=== PATIENT | female | born 1975 | race Caucasian/White ===

== ENCOUNTER 2020-07-26 23:16 | Emergency (ER) | payer OTHER, SELFPAY ==
--- NOTE | 2020-07-26 00:10 | DI.CT_ITS ---
EXAM: CT HEAD CERVICAL SPINE WO CLINICAL HISTORY: Right sided head trauma, neck pain. TECHNIQUE: Imaging Protocol: Axial computed tomography images with coronal and sagittal reformatted images were created and reviewed COMPARISON: No exams were available for comparison FINDINGS: CT Head: Ventricles and Extra axial spaces: Normal in size and morphology for the patient's age. Hemorrhage: None. Cerebral parenchyma: Normal. Midline shift: None. Brainstem/Cerebellum: Normal. Calvarium: Normal. Visualized Paranasal sinuses/Mastoids: There is mild mucosal thickening in the ethmoid air cells in t he right maxillary sinus. The remaining visualized paranasal sinuses are clear as are the mastoid ai r cells. Soft Tissues: Unremarkable. CT Cervical Spine: Bones: No acute fracture or subluxation. There is reversal of the normal cervical lordosis. Degenera tive changes are seen in the cervical spine particularly at the C5-C6 level. Soft Tissues: Unremarkable. Lung Apices: Clear. IMPRESSION: 1. No acute intracranial process. 2. No acute fracture or subluxation in the cervical spine. RADIATION DOSE DELIVERED: 1,485.42mGy.cm Total DLP DATA REPOSITORY: All CT scans at this facility are submitted to the National Radiology Data Registry (NRDR) Dose Index Registry (DIR) with the [employer] ([employer]). RADIATION OPTIMIZATION: All CT scans at this facility use at least one of these dose optimization te chniques: automated exposure control; mA and/or kV adjustment per patient size (includes targeted exa ms where dose is matched to clinical indication); or iterative reconstruction.
[2020-07-26 23:23] VITALS: BP 141/68; PULSE 71; RESP 18; TEMP 36.6; O2SAT 100
--- NOTE | 2020-07-26 23:32 | ED.GENADUL_ITS ---
Discharge Plan Disposition Patient Disposition: HOME Condition: Stable Discharge Details Clinical Impression: Closed head injury with concussion Primary Care Provider: None,None ED Provider: Umm Franco Meds and New Rx's Prescriptions: New cyclobenzaprine 10 mg tablet 10 mg PO TID PRN (Reason: muscle spasm) Qty: 10 RF: 0 Discharge Instructions Instructions: Concussion (ED), Head Injury (ED) Additional Instructions: Follow up with primary care provider in 3-5 days. Return to ED sooner if any worsening or concerns. Increase oral fluids. Please take Tylenol or Ibuprofen with food every 4-6 hours as needed for pain and swelling. Take Flexeril as needed for neck stiffness as may cause drowsiness do not operate heavy machinery while on this medication. Return for any worsening headache not relieved by Tylenol or ibuprofen, confusion, numbness tingling, vomiting or any concerns. Stand Alone Forms: Work Release Discharge Data Discharge Date/Time-TO BE ENTERED AT DEPARTURE: 07/27/20 01:06 Medical Decision Making <Umm Franco - Last Filed: 07/29/20 08:44> 44-year-old female presents to the ED with chief complaint of closed head injury which occurred while at work approximately 6:00 this morning. She states that a heavy piece of machinery hit the right side of her head. No loss of consciousness, she continued to work all day but she does note bilateral tinnitus, right-sided head and jaw pain, neck stiffness, and mild confusion. She states that she has been taking Tylenol and ibuprofen all day, denies any alcohol, no marijuana or substance abuse, she does endorse smoking daily. She also does state that she hit her head approximately 5 weeks ago after a slip and fall on the ice she was not evaluated at that time. On initial exam she does have a small hematoma noted to her right parietal scalp. No palpable skull fractures. CT head c-spine ordered to rule out intracranial abnormality or C-spine abnormality. At this time I strongly suspect concussion. Care to be handed off to ER attending Dr. Chad King MD pending CT read. Discussed plan of care with patient who is concerned for the tinnitus in her bilateral ears, I will get give meclizine here in department to see if that helps. Prescription written for Flexeril and written return instructions follow-up care given. <Chandler King MD - Last Filed: 07/27/20 01:08> CT head and cervical spine negative for acute traumatic injury. Patient has been medicated per nurse practitioner Salvador. Discharge home with concussion precautions. Follow-up primary care or occupational health next week. Return to ED for neurologic changes, persistent vomiting, worsening headache. HPI <Umm Franco - Last Filed: 07/29/20 08:44> General Mode of arrival: ambulatory . Date/Time Provider Initiated Documentation: 07/26/20 23:24 . Limitations to Documentation: no limitations . Information obtained by: patient . HPI Narrative: 44-year-old female presents to the ED with chief complaint of closed head injury which occurred while at work approximately 6:00 this morning. She states that a heavy piece of machinery hit the right side of her head. No loss of consciousness, she continued to work all day but she does note bilateral tinnitus, right-sided head and jaw pain, neck stiffness, and mild confusion. She states that she has been taking Tylenol and ibuprofen all day, denies any alcohol, no marijuana or substance abuse, she does endorse smoking daily. She also does state that she hit her head approximately 5 weeks ago after a slip and fall on the ice she was not evaluated at that time. On initial exam she does have a small hematoma noted to her right parietal scalp. No palpable skull fractures. Related Data Home Medications Medication Instructions Recorded Confirmed cyclobenzaprine 10 mg PO TID PRN #10 tab 07/27/20 Previous Rx's Medication Instructions Recorded cyclobenzaprine 10 mg PO TID PRN #10 tab 07/27/20 General Stated Complaint: HeadInjury TERE: 3 Review of Systems <Umm Franco - Last Filed: 07/29/20 08:44> All systems reviewed & are unremarkable except as noted in HPI and below Eyes Eyes: Denies blurry vision, Denies diplopia, Denies loss of vision, Denies photophobia and Denies spots in vision ENT Ears, Nose, Mouth, and Throat: Reports as per HPI, Reports facial pain, Denies nasal discharge, Denies nasal trauma, Reports neck pain and Reports tinnitus Musculoskeletal Musculoskeletal: Reports neck pain Neurologic Neurologic: Denies loss of vision PFSH <Umm Franco - Last Filed: 07/29/20 08:44> Social History Smoking/Tobacco Use Status: Current every day Smoking risk assessment performed?: Yes Alcohol Intake: current Alcohol Intake frequency: a few times a month Substance use type: does not use Do you feel safe at home: Yes Do you feel safe in your relationship?: Yes Exam <Umm Franco - Last Filed: 07/29/20 08:44> Narrative Exam Narrative: Constitutional: Alert and oriented x3. Appears stated age. Normal body habitus. Head: Normocephalic, small approximately 1 cm palpable hematoma noted to right parietal scalp, Eyes: Pupils PERRLA, Red reflex noted, EOM's intact. Eyelids symmetrical without lesions, discharge, or swelling. ENT: Bilateral TM's WNL, no hemotympanum bilaterally, external ear normal to inspection, no mastoid TTP, swelling, or erythema, Nasal turbinates WNL, no septal hematoma, no nasal discharge. Normal dentition, Posterior pharynx WNL, no exudate. Mild tenderness to the right side of her jaw, no crepitus no jaw stiffness able to open and close her mouth without difficulty. Chest: RRR, Normal S1, S2, distal pulses intact. Resp: Lungs clear to auscultation bilaterally, no wheezes, rales, or rhonchi. Musculoskeletal: Normal gait, 5/5 strength to all four extremities. Skin: No suspicious rashes or lesions. Capillary refill less than 2 sec. Neurologic: Cranial nerves II-XII intact. Alert and oriented x 3. DTR's intact. Mild difficulty finding words. Hematologic/Lymphatic: No ecchymosis, no lymphadenopathy. Course <Umm Franco - Last Filed: 07/29/20 08:44> Vital Signs Vital signs: Vital Signs Temperature 36.6 C 07/26/20 23:23 Pulse 71 07/26/20 23:23 Respiratory Rate 18 07/26/20 23:23 Blood Pressure 141/68 H 07/26/20 23:23 Pulse Oximetry 100 07/26/20 23:23 Temperature 36.6 C 07/26/20 23:23 Temperature Source Temporal Artery Scan 07/26/20 23:23 Pulse 71 07/26/20 23:23 Respiratory Rate 18 07/26/20 23:23 Respiratory Effort Non-Labored 07/26/20 23:28 Respiratory Depth Normal 07/26/20 23:28 Respiratory Pattern Normal 07/26/20 23:28 Blood Pressure 141/68 H 07/26/20 23:23 Blood Pressure Position Sitting 07/26/20 23:23 Pulse Oximetry 100 07/26/20 23:23 Oxygen Delivery Method Room Air 07/26/20 23:23 Oxygen Flow Rate 0 07/26/20 23:23 Pain Level 7 07/26/20 23:23
[2020-07-26] MEDS: Cyclobenzaprine 10 MG TAB PO (23:40)
[2020-07-27] MEDS: Meclizine 25 MG TAB PO (00:42)
--- NOTE | 2020-07-27 00:54 | DI.VRAD_ITS ---
PROCEDURE INFORMATION: Exam: CT Head Without Contrast Exam date and time: 07/26/2020 11:47 PM Age: 44 years old Clinical indication: Injury or trauma; Work related; Blunt trauma (contusions or hematomas); Without loss of consciousness; Injury date: 07/26/20; Injury details: Axle of vehicle fell on top of right side of head 12+ hours ago. ; Patient HX: Concussion x1week ago TECHNIQUE: Imaging protocol: Computed tomography of the head without contrast. Total images: 1840 Radiation optimization: All CT scans at this facility use at least one of these dose optimization techniques: automated exposure control; mA and/or kV adjustment per patient size (includes targeted exams where dose is matched to clinical indication); or iterative reconstruction. COMPARISON: No relevant prior studies available. FINDINGS: Brain: No intra or extra axial bleed. No edema or mass effect. The central chavez structures and cortical ribbon are maintained. Cerebral ventricles: No hydrocephalus. Basal cisterns are patent. Bones/joints: No significant bony abnormality. No fracture. Paranasal sinuses: There is mild mucosal thickening in a few ethmoid air cells and in the right maxillary sinus. Mastoid air cells: Mastoid air cells are clear. Orbital cavity: Unremarkable. Soft tissues: Unremarkable. IMPRESSION: 1. No acute intracranial abnormality. 2. No intracerebral bleed. PROCEDURE INFORMATION: Exam: CT Cervical Spine Without Contrast Exam date and time: 07/26/2020 11:47 PM Age: 44 years old Clinical indication: Injury or trauma; Work related; Blunt trauma (contusions or hematomas); Without loss of consciousness; Injury date: 07/26/20; Injury details: Axle of vehicle fell on top of right side of head 12+ hours ago. ; Patient HX: Concussion x1week ago TECHNIQUE: Imaging protocol: Computed tomography images of the cervical spine without contrast. Radiation optimization: All CT scans at this facility use at least one of these dose optimization techniques: automated exposure control; mA and/or kV adjustment per patient size (includes targeted exams where dose is matched to clinical indication); or iterative reconstruction. COMPARISON: No relevant prior studies available. FINDINGS: Bones/joints: There is reversal of the cervical lordosis. No fracture or subluxation. Discs/Spinal canal/Neural foramina: There is significant degenerative disc space narrowing at C5-C6 and C6-C7 with mild spondylosis mildly narrowing the neural foramen. There is mild disc bulging at C4-C5, C5-C6 and C6-C7 narrowing the anterior thecal sac. Epidural space: No gross epidural hemorrhage. Prevertebral Space: There is no prevertebral soft tissue swelling. Lungs: There is minimal pleural thickening at the lung apices. No pneumothorax. Soft tissues: Unremarkable. IMPRESSION: 1. No fracture or subluxation. 2. Degenerative disc disease. Dictated and Authenticated by: Jamey Amin MD. Ordering:CAITLYN Salomon MD
[2020-07-27 01:08] VITALS: BP 141/68; PULSE 71; RESP 18; TEMP 36.6; O2SAT 100
== END 2020-07-27 01:06 | disposition home or self-care (01) ==
PROVIDERS: Emergency Provider Registered Nurse Emergency
DX: S06.0X0A Concussion without loss of consciousness, initial encounter (principal); W31.9XXA Contact with unspecified machinery, initial encounter; Y99.0 Civilian activity done for income or pay; R68.84 Jaw pain; S13.4XXA Sprain of ligaments of cervical spine, initial encounter
CPT/HCPCS: 81025; 99284; 70450; 72125

== ENCOUNTER 2020-09-03 12:24 | Outpatient (CLI) | payer OTHER, SELFPAY ==
--- NOTE | 2020-09-03 13:24 | DI.RAD_ITS ---
EXAM: XR CERVICAL SP GAFFNEY TRAUMA 2-3V CLINICAL HISTORY: CERVICALGIA, M54.2, S/P CONCUSSION, ? ODONTOID CHANGES/RADICULAR CAUSES TECHNIQUE: COMPARISON: No exams were available for comparison FINDINGS: Five views were obtained. There is a mild mid cervical kyphosis. There is no evidence of acute frac ture. The intervertebral disc spaces at C5-6 and C6-7 are mildly narrowed and there are moderate end plate osteophytes noted at each of these levels. There is no evidence of facet dislocation. IMPRESSION: Degenerative changes, no evidence acute cervical spine injury. RADIATION DOSE DELIVERED: Total DLP
== END 2020-09-03 12:44 ==
DX: M47.812 Spondylosis without myelopathy or radiculopathy, cervical region (principal)
CPT/HCPCS: 72040

== ENCOUNTER 2020-10-03 01:56 | Outpatient (CLI) | payer OTHER, SELFPAY ==
--- NOTE | 2020-10-03 | DI.MRI_ITS ---
EXAM: MR CERVICAL SPINE WO CLINICAL HISTORY: LT CERVICAL ROOT NEUROPATHY,G54.2,NECK AND LT ARM PAIN AFTER CONCUSSION TECHNIQUE: Multiplanar multisequence MRI of the cervical spine was performed without intravenous con trast. COMPARISON: CR XR CERVICAL SP GAFFNEY TRAUMA 2-3V from 09/03/2020 FINDINGS: CERVICOMEDULLARY JUNCTION: Intact with no evidence of cerebellar tonsillar ectopia. No obvious abnor mality of the odontoid process. No evidence of Chiari 1 malformation. There is straightening of the cervical curvature and there is also noted to be a thoracic level scoliosis. CERVICAL SPINAL CORD: There is no abnormal signal in the cervical spinal cord and no evidence of foca l cord atrophy nor focal cord swelling. OSSEOUS:There are no cervical fractures evident. No significant osseous lesions in the cervical vert ebrae. INDIVIDUAL LEVELS: C2-3: No disc herniation nor central canal stenosis. No foraminal stenosis. No facet arthropathy. C3-4: Normal disc height and signal. Mild central annular bulging both out a prominent disc herniati on. Moderate degenerative changes in the left facet joint. Mild degenerative changes in the right f acet joint. No foraminal stenosis. C4-5: Relatively preserved disc height and signal. However, there is a posterolateral left disc prot rusion at this level which extends posteriorly 2 millimeters and is approximately 1 cm wide.There is no facet arthropathy at this level. Central canal dimensions are lower normal. No obvious foraminal stenosis. C5-6: Decreased disc height and signal. Anterior osteophytes. Mild annular bulging but without a do minant disc herniation. Central canal dimensions are lower normal. There is no significant facet ar thropathy. Minimal foraminal stenosis. C6-7: Decreased disc height and signal at this level also noted as well as small anterior osteophytes . Small bilateral Luschka joint osteophytes. Mild annular bulging but without a dominant disc herni ation. Central canal dimensions are lower normal. There is some mild foraminal stenosis bilaterally due to the small Luschka joint osteophytes. Mild facet joint degenerative changes. C7-T1: No disc herniation nor central canal stenosis. No facet arthropathy.No foraminal stenosis. IMPRESSION: 1. Degenerative disc disease as described above, chronic at C5-6 and C6-7 levels without dominant dis c protrusions at these levels. However, there does appear to be a posterolateral left disc protrusio n at the C4-5 level as described above. This extends posteriorly 2 millimeters and is approximately 10 millimeters wide. There is no prominent canal stenosis. No prominent foraminal stenosis. 2. There is no abnormal signal in the cervical spinal cord. Also no evidence of focal cord atrophy nor focal cord swelling. DATA REPOSITORY:
== END 2020-10-03 02:16 ==
DX: M54.2 Cervicalgia (principal); M79.602 Pain in left arm; G54.2 Cervical root disorders, not elsewhere classified; M50.322 Other cervical disc degeneration at C5-C6 level; M50.323 Other cervical disc degeneration at C6-C7 level; M50.221 Other cervical disc displacement at C4-C5 level
CPT/HCPCS: 72141